=== PATIENT | male | born 1945 | race Caucasian/White ===

== ENCOUNTER 2016-06-03 13:44 | Outpatient (CLI) | payer MEDICARE, OTHER | END 2016-06-03 13:45 | disposition home or self-care (01) | DX: I82.409 Acute embolism and thrombosis of unspecified deep veins of unspecified lower extremity (principal) ==

== ENCOUNTER 2016-07-04 11:50 | Outpatient (CLI) | payer MEDICARE, OTHER | END 2016-07-04 11:51 | disposition home or self-care (01) | DX: I82.409 Acute embolism and thrombosis of unspecified deep veins of unspecified lower extremity (principal) ==

== ENCOUNTER 2016-08-02 12:58 | Outpatient (CLI) | payer MEDICARE, OTHER | END 2016-08-02 12:59 | disposition home or self-care (01) | DX: I82.409 Acute embolism and thrombosis of unspecified deep veins of unspecified lower extremity (principal) ==

== ENCOUNTER 2016-08-22 14:08 | Outpatient (CLI) | payer MEDICARE, OTHER | END 2016-08-22 14:09 | disposition home or self-care (01) | DX: I82.409 Acute embolism and thrombosis of unspecified deep veins of unspecified lower extremity (principal) ==

== ENCOUNTER 2016-09-08 15:14 | Outpatient (CLI) | payer MEDICARE, OTHER | END 2016-09-08 15:15 | disposition home or self-care (01) | DX: I82.409 Acute embolism and thrombosis of unspecified deep veins of unspecified lower extremity (principal) ==

== ENCOUNTER 2016-10-07 11:30 | Outpatient (CLI) | payer MEDICARE, OTHER | END 2016-10-07 11:31 | disposition home or self-care (01) | DX: I82.409 Acute embolism and thrombosis of unspecified deep veins of unspecified lower extremity (principal) ==

== ENCOUNTER 2016-11-07 20:32 | Emergency (ER) | payer MEDICARE, OTHER ==
[2016-11-07 20:52] VITALS: BP 116/72
--- NOTE | 2016-11-07 21:01 | ED Physician Documentation ---
PD HPI BACK PAIN - Stated complaint Stated Complaint: RASH - Chief complaint Chief Complaint: General - History obtained from History obtained from: Patient - History of Present Illness Timing - onset: Today (had onset of right scapular pain with lifting a few days ago. Continued to be sore with movement. Had pain again today with some lifting. Noted large bruising color on right side of back/flank today as well. Does not hurt in area of the bruising though.) Timing - duration: Days Timing - details: Gradual onset Location: Upper, Right (scapular area) Quality: Pain, Sharp Associated symptoms: No: Weakness, Numbness Improves with: Rest Worsened by: Movement (shoulder movement and arm lifting hurts in right medial scapular area.) Contributing factors: Lifting Similar symptoms before: Has not had sx before Recently seen: Not recently seen Review of Systems Constitutional: denies: Fever, Chills Cardiac: denies: Chest pain / pressure, Palpitations Respiratory: denies: Dyspnea, Cough, Wheezing Neurologic: denies: Focal weakness, Numbness Endocrine: reports: Easy bruising / bleeding (due to Coumadin use) PD PAST MEDICAL HISTORY - Past Medical History Past Medical History: Yes Cardiovascular: Hypertension, Deep vein thrombosis Respiratory: Sleep apnea Endocrine/Autoimmune: Type 2 diabetes GI: GERD Musculoskeletal: Gout Other Past Medical History: essential thrombocytosis (CCA). CLL - Past Surgical History Past Surgical History: Yes Ortho: Carpal Tunnel surgery - Present Medications Home Medications: Ambulatory Orders Medication Instructions Recorded Confirmed Magnesium Oxide [Mag Ox] 400 mg PO DAILY #30 tablet 11/07/16 - Allergies Allergies/Adverse Reactions: Allergies Allergy/AdvReac Type Severity Reaction Status Date / Time No Known Drug Allergies Allergy Verified 11/07/16 20:52 - Social History Does the pt smoke?: No Smoking Status: Never smoker Does the pt drink ETOH?: Yes Does the pt have substance abuse?: Yes Substance Use and Type: Marijuana - Family History Family history: reports: Non contributory PD ED PE NORMAL - Vitals Vital signs reviewed: Yes - General General: Alert and oriented X 3, No acute distress, Well developed/nourished - Neck Neck: Supple, no meningeal sign, No adenopathy - Cardiac Cardiac: RRR, No murmur - Respiratory Respiratory: Clear bilaterally - Abdomen Abdomen: Soft, Non tender - Back Back: No spinal TTP, Other (right medial scapular area with focal area of tenderness and humped swelling c/w hematoma. Focal muscular tenderness. Rest of right back from there down and laterally to iliac crest with fairly uniform purple ecchymosis without tenderness. ) - Derm Derm: Warm and dry - Neuro Neuro: Alert and oriented X 3, No motor deficit, No sensory deficit, Normal speech Results - Vitals Vitals: Vital Signs - 24 hr 11/07/16 20:46 Temperature 37.1 C Heart Rate 83 Respiratory 17 Rate Blood Pressure 116/72 O2 Saturation 98 Oxygen O2 Source Room air - Labs Labs: Laboratory Tests 11/07/16 11/07/16 11/07/16 21:32 21:32 21:32 WBC 24.1 H RBC 2.74 L Hgb 10.9 L Hct 31.7 L MCV 115.8 H MCH 39.9 H MCHC 34.4 RDW 12.8 Plt Count 323 MPV 7.9 Neut # Not Reportable Lymph # Not Reportable [place] # Not Reportable Eos # Not Reportable Baso # Not Reportable Absolute Nucleated RBC Not Reportable Total Counted 100 Band Neuts % (Manual) 1 Myelocytes % 3 H Other Cells % 14 Neutrophils # (Manual) 9.6 H Lymphocytes # (Manual) 9.4 H Monocytes # (Manual) 0.7 Eosinophils # (Manual) 0.2 Nucleated RBCs Not Reportable Differential Comment MANUAL DIFFERENTIAL Manual Slide Review Indicated WBC Morphology 1+ SMUDGE CELLS Platelet Estimate NORMAL (130-450,000) Platelet Morphology NORMAL APPEARANCE RBC Morph Micro Appear 3+ MACROCYTOSIS PT 29.0 H INR 2.5 H Sodium 133 L Potassium 4.7 Chloride 100 L Carbon Dioxide 23 Anion Gap 10.0 BUN 38 H Creatinine 2.0 H Estimated GFR (MDRD) 33 L Glucose 279 H Calcium 8.4 L Magnesium 0.9 L* Total Bilirubin 1.4 H AST 21 ALT 21 Alkaline Phosphatase 42 Total Protein 6.3 L Albumin 3.5 Globulin 2.8 Albumin/Globulin Ratio 1.3 Lipase 35 - Rads (name of study) chest Radiology: Prelim report reviewed, EMP read contemporaneously (no acute process ; no effusions) PD MEDICAL DECISION MAKING - ED course Complexity details: reviewed results (has history of CLL and elevated platelets , anemia. I don't have comparison labs from recently ([facility] care [facility]) but labs are not off enough to be worrisome. ), considered differential (had onset right scapular pain after some lifting few days ago and then again earlier today. Large ecchymosis just noted today, so presume gravity/leaching effect from hematoma few days ago. His INR is in normal range. Will have him not do lifting/push-pull for a week to allow muscle healing in scapular area. ), d/w patient Departure - Departure Disposition: 01 Home, Self Care Clinical Impression: Hematoma, Anticoagulant long-term use, Hypomagnesemia Muscle strain of right upper back Qualifiers: Encounter type: initial encounter Qualified Code(s): S29.012A - Strain of muscle and tendon of back wall of thorax, initial encounter Condition: Stable Record reviewed to determine appropriate education?: Yes Instructions: ED Hematoma Prescriptions: Magnesium Oxide [Mag Ox] 400 mg PO DAILY #30 tablet Comments: Continue your current Warfarin dosing. Sling for the right arm/shoulder periodically to help with back muscle healing, at least no lifting/ push-pull with the right arm. Recheck with your PMD later this week, they may want to repeat your blood count to ensure it is not lowering. Heat to the hematoma area may promote absorption of it. Tylenol as needed for pains. Discharge Date/Time: 11/07/16 22:41
[2016-11-07 21:45] LABS: BASOPHILS % (AUTO) 0.1 %; EOSINOPHILS % (AUTO) 0.4 %; HCT - HEMATOCRIT 31.7 % (42.0-52.0); HGB - HEMOGLOBIN 10.9 g/dL (14.0-18.0); LYMPHOCYTES % (AUTO) 49.1 %; MEAN CORPUSCULAR HEMOGLOBIN 39.9 pg (27.0-31.0); MEAN CORPUSCULAR HGB CONC 34.4 g/dL (32.0-36.0); MEAN CORPUSCULAR VOLUME 115.8 fL (80.0-94.0); MEAN PLATELET VOLUME 7.9 fL (7.4-11.4); MONOCYTES % (AUTO) 3.6 %; NEUTROPHILS % (AUTO) 46.8 %; RED BLOOD COUNT 2.74 10^6/uL (4.70-6.10); RED CELL DISTRIBUTION WIDTH 12.8 % (12.0-15.0); UNCORRECTED WHITE BLOOD COUNT 24.1 x10^3/uL; WHITE BLOOD COUNT 24.1 x10^3/uL (4.8-10.8)
[2016-11-07 21:55] LABS: INR 2.5 (0.8-1.2)
--- NOTE | 2016-11-07 21:55 | XRAY Preliminary Report ---
Exam: XR Chest 2 View PA/LAT IMPRESSION: Normal 2-view chest radiography. [facility] SITE ID: [id number]
--- NOTE | 2016-11-07 21:58 | XRAY Report ---
EXAM: CHEST RADIOGRAPHY EXAM DATE: 11/07/2016 09:43 PM. CLINICAL HISTORY: Right shoulder/chest pain after lifting. COMPARISON: None. TECHNIQUE: 2 views. FINDINGS: Lungs/Pleura: No focal opacities evident. No pleural effusion. No pneumothorax. Normal volumes. Mediastinum: Heart and mediastinal contours are unremarkable. The aorta is tortuous. Other: No fractures identified. IMPRESSION: Normal 2-view chest radiography. [facility] Referring Provider Line: [phone] SITE ID: [id number]
[2016-11-07 22:06] LABS: CALCIUM 8.4 mg/dL (8.5-10.3); POTASSIUM 4.7 mmol/L (3.5-5.0)
[2016-11-07 22:12] LABS: BAND NEUTROPHILS % (MANUAL) 1 %; EOSINOPHILS % (MANUAL) 1 %; LYMPHOCYTES % (MANUAL) 39 %; NEUTROPHILS % (MANUAL) 39 %; TOTAL CELLS COUNTED 100
[2016-11-07 22:13] LABS: PLATELET ESTIMATE, MANUAL NORMAL (130-450,000) (NORMAL); PLATELET MORPHOLOGY NORMAL APPEARANCE (NORMAL)
[2016-11-07 22:14] LABS: NP AUTO DIFFERENTIAL? YES; NP MAN DIFFERENTIAL? NO
[2016-11-07 22:36] LABS: ALBUMIN/GLOBULIN RATIO 1.3 (1.0-2.2); BILIRUBIN,TOTAL 1.4 mg/dL (0.2-1.0); TOTAL PROTEIN 6.3 g/dL (6.7-8.2)
[2016-11-07 22:47] LABS: MAGNESIUM 0.9 mg/dL (1.7-2.8)
[2016-11-07] MEDS ORDERED: MAGNESIUM OXIDE 400 MG TABLET PO STA (22:58)
[2016-11-07] MEDS ORDERED: MAGNESIUM OXIDE 400 MG TABLET PO ONE (23:00)
== END 2016-11-07 22:41 | disposition home or self-care (01) ==
LOC: ED 20:32
DX: S29.012A Strain of muscle and tendon of back wall of thorax, initial encounter (principal); S40.011A Contusion of right shoulder, initial encounter; X50.0XXA Overexertion from strenuous movement or load, initial encounter; Y93.89 Activity, other specified; E83.42 Hypomagnesemia; Z79.01 Long term (current) use of anticoagulants; Z86.718 Personal history of other venous thrombosis and embolism; I10 Essential (primary) hypertension; E11.9 Type 2 diabetes mellitus without complications; Z85.6 Personal history of leukemia
CPT/HCPCS: 36415; 71020; 80053; 83690; 83735; 85025; 85610; 99283; 99284; A9270

== ENCOUNTER 2016-12-08 15:17 | Outpatient (CLI) | payer MEDICARE, OTHER | END 2016-12-08 15:18 | disposition home or self-care (01) | LOC: LAB 15:17 | PROVIDERS: ATTEND Internal Medicine | DX: I82.409 Acute embolism and thrombosis of unspecified deep veins of unspecified lower extremity (principal) | CPT/HCPCS: 85610 ==

== ENCOUNTER 2016-12-20 15:11 | Outpatient (CLI) | payer MEDICARE, OTHER | END 2016-12-20 15:12 | disposition home or self-care (01) | LOC: LAB 15:11 | PROVIDERS: ATTEND Internal Medicine | DX: I82.409 Acute embolism and thrombosis of unspecified deep veins of unspecified lower extremity (principal) | CPT/HCPCS: 85610 ==

== ENCOUNTER 2017-01-03 15:43 | Outpatient (CLI) | payer MEDICARE, OTHER | END 2017-01-03 15:44 | disposition home or self-care (01) | LOC: LAB 15:43 | PROVIDERS: ATTEND Internal Medicine | DX: I82.409 Acute embolism and thrombosis of unspecified deep veins of unspecified lower extremity (principal) | CPT/HCPCS: 85610 ==

== ENCOUNTER 2017-01-19 14:30 | Outpatient (CLI) | payer MEDICARE, OTHER | END 2017-01-19 14:31 | disposition home or self-care (01) | LOC: LAB 14:30 | PROVIDERS: ATTEND Internal Medicine | DX: I82.409 Acute embolism and thrombosis of unspecified deep veins of unspecified lower extremity (principal) | CPT/HCPCS: 85610 ==

== ENCOUNTER 2017-02-23 15:35 | Outpatient (CLI) | payer MEDICARE, OTHER | END 2017-02-23 15:36 | disposition home or self-care (01) | LOC: LAB 15:35 | PROVIDERS: ATTEND Internal Medicine | DX: I82.409 Acute embolism and thrombosis of unspecified deep veins of unspecified lower extremity (principal) | CPT/HCPCS: 85610 ==

== ENCOUNTER 2017-04-25 12:53 | Outpatient (CLI) | payer MEDICARE, OTHER | END 2017-04-25 12:54 | disposition home or self-care (01) | LOC: LAB 12:53 | PROVIDERS: ATTEND Internal Medicine | DX: I82.409 Acute embolism and thrombosis of unspecified deep veins of unspecified lower extremity (principal) | CPT/HCPCS: 85610 ==

== ENCOUNTER 2017-06-01 14:46 | Outpatient (CLI) | payer MEDICARE, OTHER | END 2017-06-01 14:47 | disposition home or self-care (01) | LOC: LAB 14:46 | PROVIDERS: ATTEND Internal Medicine | DX: I82.409 Acute embolism and thrombosis of unspecified deep veins of unspecified lower extremity (principal) | CPT/HCPCS: 85610 ==

== ENCOUNTER 2017-06-08 10:44 | Outpatient (CLI) | payer MEDICARE, OTHER | END 2017-06-08 10:45 | disposition home or self-care (01) | LOC: LAB 10:44 | PROVIDERS: ATTEND Internal Medicine | DX: I82.409 Acute embolism and thrombosis of unspecified deep veins of unspecified lower extremity (principal) | CPT/HCPCS: 85610 ==

== ENCOUNTER 2017-07-10 15:44 | Outpatient (CLI) | payer MEDICARE, OTHER | END 2017-07-10 15:45 | disposition home or self-care (01) | LOC: LAB 15:44 | PROVIDERS: ATTEND Internal Medicine | DX: I82.409 Acute embolism and thrombosis of unspecified deep veins of unspecified lower extremity (principal) | CPT/HCPCS: 85610 ==

== ENCOUNTER 2017-08-08 14:35 | Outpatient (CLI) | payer MEDICARE, OTHER | END 2017-08-08 14:36 | disposition home or self-care (01) | LOC: LAB 14:35 | PROVIDERS: ATTEND Internal Medicine | DX: I82.409 Acute embolism and thrombosis of unspecified deep veins of unspecified lower extremity (principal) | CPT/HCPCS: 85610 ==

== ENCOUNTER 2017-09-08 11:21 | Outpatient (CLI) | payer MEDICARE, OTHER | END 2017-09-08 11:22 | disposition home or self-care (01) | LOC: LAB 11:21 | PROVIDERS: ATTEND Internal Medicine | DX: I82.409 Acute embolism and thrombosis of unspecified deep veins of unspecified lower extremity (principal) | CPT/HCPCS: 85610 ==

== ENCOUNTER 2017-10-09 12:41 | Outpatient (CLI) | payer MEDICARE, OTHER | END 2017-10-09 12:42 | disposition home or self-care (01) | LOC: LAB 12:41 | PROVIDERS: ATTEND Internal Medicine | DX: I82.409 Acute embolism and thrombosis of unspecified deep veins of unspecified lower extremity (principal) | CPT/HCPCS: 85610 ==

== ENCOUNTER 2017-10-31 12:02 | Outpatient (CLI) | payer MEDICARE, OTHER | END 2017-10-31 12:03 | disposition home or self-care (01) | LOC: LAB 12:02 | PROVIDERS: ATTEND Internal Medicine | DX: I82.409 Acute embolism and thrombosis of unspecified deep veins of unspecified lower extremity (principal) | CPT/HCPCS: 85610 ==

== ENCOUNTER 2017-11-28 14:56 | Outpatient (CLI) | payer MEDICARE, OTHER | END 2017-11-28 14:57 | disposition home or self-care (01) | LOC: LAB 14:56 | PROVIDERS: ATTEND Internal Medicine | DX: I82.409 Acute embolism and thrombosis of unspecified deep veins of unspecified lower extremity (principal) | CPT/HCPCS: 85610 ==

== ENCOUNTER 2018-01-04 14:30 | Outpatient (CLI) | payer MEDICARE, OTHER ==
[2018-01-04 14:55] LABS: BASOPHILS % (AUTO) 0.2 %; EOSINOPHILS % (AUTO) 1.2 %; HGB - HEMOGLOBIN 16.1 g/dL (14.0-18.0); LYMPHOCYTES % (AUTO) 40.9 %; MEAN CORPUSCULAR HEMOGLOBIN 34.2 pg (27.0-31.0); MEAN CORPUSCULAR HGB CONC 33.3 g/dL (32.0-36.0); MEAN CORPUSCULAR VOLUME 102.6 fL (80.0-94.0); MEAN PLATELET VOLUME 8.2 fL (7.4-11.4); MONOCYTES % (AUTO) 2.9 %; NEUTROPHILS % (AUTO) 54.8 %; PLT - PLATELET COUNT 350 10^3/uL (130-450); RED BLOOD COUNT 4.72 10^6/uL (4.70-6.10); WHITE BLOOD COUNT 19.3 x10^3/uL (4.8-10.8)
[2018-01-04 15:17] LABS: ALBUMIN 3.6 g/dL (3.2-5.5); ALBUMIN/GLOBULIN RATIO 1.3 (1.0-2.2); BILIRUBIN,TOTAL 0.6 mg/dL (0.2-1.0); TOTAL PROTEIN 6.4 g/dL (6.7-8.2)
[2018-01-04 16:29] LABS: ABNORMAL LYMPHS % (MANUAL) 0 %
[2018-01-04 16:30] LABS: BAND NEUTROPHILS % (MANUAL) 1 %; LYMPHOCYTES # (MANUAL) 8.3 10^3/uL (1.5-3.5); LYMPHOCYTES % (MANUAL) 43 %; MONOCYTES # (MANUAL) 0.6 10^3/uL (0.0-1.0); NEUTROPHILS # (MANUAL) 10.4 10^3/uL (1.5-6.6); NEUTROPHILS % (MANUAL) 53 %
[2018-01-04 16:32] LABS: RBC MORPHOLOGY (MULTIPLE) 2+ MACROCYTOSIS (NORMAL)
[2018-01-04 16:33] LABS: DIFFERENTIAL COMMENT MANUAL DIFFERENTIAL; PLATELET ESTIMATE, MANUAL NORMAL (130-450,000) (NORMAL); PLATELET MORPHOLOGY NORMAL APPEARANCE (NORMAL)
== END 2018-01-04 14:31 | disposition home or self-care (01) ==
LOC: LAB 14:30
PROVIDERS: ATTEND Internal Medicine
DX: C91.10 Chronic lymphocytic leukemia of B-cell type not having achieved remission (principal); I82.409 Acute embolism and thrombosis of unspecified deep veins of unspecified lower extremity
CPT/HCPCS: 36415; 80053; 85025; 85610

== ENCOUNTER 2018-01-08 14:56 | Outpatient (CLI) | payer MEDICARE, OTHER | END 2018-01-08 14:57 | disposition home or self-care (01) | LOC: LAB 14:56 | PROVIDERS: ATTEND Internal Medicine | DX: I82.409 Acute embolism and thrombosis of unspecified deep veins of unspecified lower extremity (principal) | CPT/HCPCS: 85610 ==

== ENCOUNTER 2018-01-24 13:17 | Outpatient (CLI) | payer MEDICARE, OTHER | END 2018-01-24 13:18 | disposition home or self-care (01) | LOC: LAB 13:17 | PROVIDERS: ATTEND Internal Medicine | DX: I82.409 Acute embolism and thrombosis of unspecified deep veins of unspecified lower extremity (principal) | CPT/HCPCS: 85610 ==

== ENCOUNTER 2018-02-14 14:28 | Outpatient (CLI) | payer MEDICARE, OTHER | END 2018-02-14 14:29 | disposition home or self-care (01) | LOC: LAB 14:28 | PROVIDERS: ATTEND Internal Medicine | DX: I82.409 Acute embolism and thrombosis of unspecified deep veins of unspecified lower extremity (principal) | CPT/HCPCS: 85610 ==

== ENCOUNTER 2018-03-16 14:35 | Outpatient (CLI) | payer MEDICARE, OTHER | END 2018-03-16 14:36 | disposition home or self-care (01) | LOC: LAB 14:35 | PROVIDERS: ATTEND Internal Medicine | DX: I82.409 Acute embolism and thrombosis of unspecified deep veins of unspecified lower extremity (principal) | CPT/HCPCS: 85610 ==

== ENCOUNTER 2018-04-20 12:39 | Outpatient (CLI) | payer MEDICARE, OTHER ==
[2018-04-20 14:10] LABS: CALCIUM 9.1 mg/dL (8.5-10.3); CREATININE 1.7 mg/dL (0.6-1.2); MAGNESIUM 1.6 mg/dL (1.7-2.8); PHOSPHORUS 3.5 mg/dL (2.5-4.6)
[2018-04-20 14:10] LABS: CREATININE,URINE 66.6 mg/dL; PROTEIN/CREATININE RATIO,URINE 1.2 (<=0.2)
== END 2018-04-20 12:40 | disposition home or self-care (01) ==
LOC: LAB 12:39
PROVIDERS: ATTEND Internal Medicine
DX: I82.409 Acute embolism and thrombosis of unspecified deep veins of unspecified lower extremity (principal); N18.3 Chronic kidney disease, stage 3 (moderate)
CPT/HCPCS: 36415; 80069; 82570; 83735; 84156; 85610

== ENCOUNTER 2018-05-23 14:27 | Outpatient (CLI) | payer MEDICARE, OTHER ==
[2018-05-23 15:21] LABS: ALBUMIN 3.6 g/dL (3.2-5.5); CALCIUM 8.7 mg/dL (8.5-10.3); CREATININE 1.7 mg/dL (0.6-1.2); MAGNESIUM 1.5 mg/dL (1.7-2.8); PHOSPHORUS 3.6 mg/dL (2.5-4.6)
[2018-05-23 16:45] LABS: PROTEIN/CREATININE RATIO,URINE 0.6 (<=0.2)
== END 2018-05-23 14:28 | disposition home or self-care (01) ==
LOC: LAB 14:27
PROVIDERS: ATTEND Internal Medicine Nephrology
DX: N18.3 Chronic kidney disease, stage 3 (moderate) (principal); I82.409 Acute embolism and thrombosis of unspecified deep veins of unspecified lower extremity
CPT/HCPCS: 36415; 80069; 82570; 83735; 84156; 85610

== ENCOUNTER 2018-07-05 13:31 | Outpatient (CLI) | payer MEDICARE, OTHER | END 2018-07-05 13:32 | disposition home or self-care (01) | LOC: LAB 13:31 | PROVIDERS: ATTEND Internal Medicine | DX: I82.409 Acute embolism and thrombosis of unspecified deep veins of unspecified lower extremity (principal) | CPT/HCPCS: 85610 ==